=== PATIENT | female | born 1940 | race Asian ===

== ENCOUNTER 2018-03-08 06:33 | Day surgery (SDC) | payer MEDICARE, OTHER ==
[2018-03-08] MEDS ORDERED: SOD CHLORIDE 0.9% 1,000 ML IV (07:00)
[2018-03-08] MEDS ORDERED: LIDOCAINE 2% (SDV) 5 ML INJ (07:00)
[2018-03-08] MEDS: MOXIFLOXACIN 0.5% 3 ML OPH OPER (07:51)
[2018-03-08] MEDS: DICLOFENAC 0.1% 2.5 ML OPH OPER (07:51)
[2018-03-08] MEDS: CYCLOPENTOLATE/PHENYLEPH 2 ML OPH OPER (07:51)
[2018-03-08] MEDS: TROPICAMIDE 1% 3 ML OPH OPER (07:51)
[2018-03-08] MEDS ORDERED: NA HYALURONATE/CHONDROITIN 0.5 ML SYG (09:17)
[2018-03-08] MEDS: CEFAZOLIN 1 GM INJ (09:17)
[2018-03-08] MEDS: CARBACHOL 0.01% 1.5 ML OPH INJ (09:17)
[2018-03-08] MEDS: DEXAMETHASONE 4 MG/ML 1 ML INJ (09:17)
[2018-03-08] MEDS ORDERED: ONDANSETRON 4 MG INJ IV (09:30)
[2018-03-08] MEDS ORDERED: ACETAMINOPHEN 325 MG TAB PO (09:30)
[2018-03-08] MEDS ORDERED: FENTAnyl 50 MCG/ML VIAL IV (09:30)
[2018-03-08] MEDS ORDERED: ALBUTEROL 0.083% (NEB) 2.5 MG/3 ML AMP HHN (09:30)
[2018-03-08] MEDS ORDERED: OXYCODONE/ACETAMINOPHEN (5/325) TAB PO (09:30)
[2018-03-08] MEDS ORDERED: ACETAMINOPHEN 500 MG TAB PO (09:30)
[2018-03-08] MEDS ORDERED: DIPHENHYDRAMINE 50 MG INJ IV (09:30)
[2018-03-08] MEDS ORDERED: hydrALAzine 20 MG INJ IV (09:30)
[2018-03-08] MEDS ORDERED: LABETALOL HCL 20MG INJ IV (09:30)
[2018-03-08] MEDS ORDERED: FENTAnyl 50 MCG/ML VIAL (09:56)
[2018-03-08] MEDS ORDERED: PROPOFOL 20 ML (09:58)
== END 2018-03-08 11:40 | disposition home or self-care (01) ==
LOC: SDS 06:33
DX: H25.12 Age-related nuclear cataract, left eye (principal); I10 Essential (primary) hypertension; I25.10 Atherosclerotic heart disease of native coronary artery without angina pectoris
CPT/HCPCS: 66984